=== PATIENT | female | born 1950 | race Caucasian/White ===

== ENCOUNTER 2018-04-10 08:47 | Inpatient (IN) | payer BC, MEDICARE ==
[~2018-04-10 08:47] MED LIST: MORPHINE SULFATE 15 MG TABLET.SA PO PRN; ROPIVACAINE HCL/PF 100 MG, EPINEPHrine 0.2 MG, KETOROLAC TROMETHAMINE 30 MG in NORMAL S... IJ PRN; TRANEXAMIC ACID 1,000 MG in NORMAL SALINE 100 ML IV PRN; ceFAZolin SODIUM 1 GM VIAL IV PRN
--- NOTE | 2018-04-10 09:38 | ANES ---
Anesthesia Pre Procedure Eval Vitals/Labs: Last Vital Signs Temp 36.3 C 04/10/18 08:55 Pulse 92 04/10/18 08:55 Resp 18 04/10/18 08:55 BP 155/94 H 04/10/18 08:55 Pulse Ox 95 04/10/18 08:55 HOME MEDICATIONS Enalapril Maleate [Vasotec] 10 mg PO DAILY 01/13/16 [Last Taken 07/06/16] Magnesium 200 mg PO DAILY 06/29/16 [Last Taken 07/06/16] [place]-3 Fatty Acids/Fish Oil [Fish Oil 1,000 mg Capsule] 1 ea PO DAILY 06/29/16 [Last Taken 07/06/16] acetaminophen 300 mg-codeine 30 mg tablet 1 tab PO Q4H PRN tab 02/10/18 [Last Taken Unknown] albuterol sulfate HFA 90 mcg/actuation aerosol inhaler 2 puff IH Q6H PRN g 09/25 [Last Taken Unknown] amitriptyline 50 mg tablet 50 mg PO HS 02/10/18 [Last Taken Unknown] calcium carbonate 500 mg calcium (1,250 mg) tablet 500 mg PO BID tab 02/10/18 [ Last Taken Unknown] diclofenac sodium 75 mg tablet,delayed release 75 mg PO BID 02/10/18 [Last Taken Unknown] potassium chloride ER 10 mEq tablet,extended release 10 meq PO DAILY #90 tab 09/25 [Last Taken Unknown] aspirin 325 mg tablet 325 mg PO DAILY 04/04/18 [Last Taken Unknown] furosemide 20 mg tablet 40 mg PO DAILY tab 04/04/18 [Last Taken Unknown] Allergies/Adverse Reactions: Allergies Allergy/AdvReac Type Severity Reaction Status Date / Time methylprednisolone Allergy Intermediate hives, Verified 03/16/18 13:14 [From Medrol] throat tightness prednisone Allergy Intermediate pill and Verified 03/16/18 13:14 IM got hives, throat tightness, no issues with iv losartan Allergy Mild swelling Verified 03/16/18 13:14 adhesive Allergy Hives Verified 03/16/18 13:14 tramadol [From Ultram] Allergy hives Verified 03/16/18 13:14 mupirocin AdvReac Mild burning Verified 03/16/18 13:14 rash lidocaine [From Lidoderm] AdvReac Itching Verified 03/16/18 13:14 - Planned Procedure Planned Procedure: Arthroplasty R Total Hip Medication List Reviewed:: Yes Allergies Verified: Yes Medical History (Last Reviewed 04/10/18 @ 09:37 by Jia Kaur RN) Urinary incontinence (Chronic) Onset Date: Unknown Hypertension (Chronic) Onset Date: Unknown Asthma (Chronic) Onset Date: Unknown Back pain Onset Date: Unknown Decreased libido Onset Date: 05/02/13 Hip pain, right Onset Date: Unknown Joint pain Onset Date: Unknown Pollen allergies Onset Date: Unknown Post-menopausal Onset Date: Unknown Bronchitis Onset Date: Unknown Cellulitis Onset Date: Unknown Chronic serous otitis media Onset Date: Unknown Cough Onset Date: Unknown Headache Onset Date: Unknown History of mammogram Onset Date: 04/02/16 Edema Onset Date: 01/24/17 Surgical History (Last Reviewed 04/04/18 @ 14:35 by Freddy Mcclure RN) Cataract Onset Date: 05/11/17 History of arthroscopic knee surgery Onset Date: 06/08/09 History of cholecystectomy Onset Date: Unknown History of colonoscopy Onset Date: 11/23/10 History of dilation and curettage Onset Date: Unknown History of hysterectomy Onset Date: Unknown History of knee replacement Onset Date: 06/18/02 History of shoulder surgery Onset Date: 03/05/10 Family History (Last Reviewed 04/04/18 @ 14:35 by Freddy Mcclure RN) Mother CAD (coronary artery disease) Thyroid disease Heart disease Anemia Arthritis Glaucoma Hyperlipemia Hypertension Myocardial infarction Peptic ulcer disease Father Myocardial infarction Sister Kidney neoplasm - Family Anesthesia History Family History:: no untoward family reactions to anesthesia, no familial bleeding tendencies, no family history of clotting disorders, no family history of premature - Airway/Neck/Teeth Within Normal Limits:: Yes Teeth Condition: Intact Mallampatti Score: 3 Thyromental (T-M) distance: > 6 cm Mandibulo Hyoid distance: > 3 cm - Respiratory Respiratory: lungs clear Smoking Status: Former smoker Discussed smoking cessation including day of surgery: No Sleep Apnea currently treated: No Sleep Apnea by current assessment: No Discussed Risks/Treatment of OMAR: No - Cardiovascular Tolerates Activity: Fair Heart Sounds: S1 & S2, Regular - Anesthesia Assessment and Plan ASA Class: PS, III Anesthesia Type Plan: Spinal Planned difficult intubation/equipment available: No
[2018-04-10] MEDS: RINGER'S SOLUTION,LACTATED 1,000 ML IV PRN ×2 (10:55→12:07)
[2018-04-10] MEDS ORDERED: ZOLPIDEM TARTRATE 5 MG TABLET PO PRN (13:15)
[2018-04-10] MEDS ORDERED: ACETAMINOPHEN 500 MG TABLET PO PRN (13:15)
[2018-04-10] MEDS ORDERED: MAG HYDROX/ALUMINUM HYD/SIMETH 30 ML UDC PO PRN (13:15)
[2018-04-10] MEDS ORDERED: DEXTROSE 5%-LACTATED RINGERS 1,000 ML IV PRN (13:15)
[2018-04-10] MEDS ORDERED: MAGNESIUM HYDROXIDE 30 ML UDC PO PRN (13:15)
[2018-04-10] MEDS ORDERED: diphenhydrAMINE HCL 50 MG/ML VIAL IV PRN (13:15)
[2018-04-10] MEDS ORDERED: MORPHINE SULFATE 4 MG/ML SYRG IV PRN (13:15)
--- NOTE | 2018-04-10 13:15 | OR ---
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 Procedure: Right Total hip arthroplasty. Surgeon: Octavio Phelps M.D. Multifocal Button Generator: Issa Anderson PA-C Anesthesia: Spinal and local periarticular joint injection. Complications: None Specimens: Bone for disposal. Estimated blood loss: 200 milliliters. Retained implants: Depuy [place] size 4 femoral stem standard offset. Size 52 millimeter outside diameter 3-hole [place] Gription acetabular cup. 52 millimeter outside by 36 millimeter inside diameter highly cross-linked acetabular liner. 36 millimeter diameter +1.5 millimeter ceramic femoral head. Cancellous 6.5mm screws 20 and 30 millimeter lengths Indications: Mrs. Joyner is a 68-year-old female who developed avascular necrosis of the right hip with aggressive right hip pain. This patient was followed in my clinic for period of time with significant complaints of right hip pain consistent with arthritic changes. She failed conservative measures including but not limited to activity modification, passage of time, medications , and other conservative measures. Patient wished to proceed with surgical treatment. The risks, benefits, and alternatives were discussed in clinic. The risks of , blood clots, bleeding, infection, nerve/tendon blood vessel / injury, malposition of components, dislocation and/or instability of joint, intraoperative fracture, postoperative limited range of motion, persistent pain , failure of components, and need for additional procedures. Patient wished to proceed. Consent was obtained after answering all questions. Procedure: After marking the correct extremity on the floor, the patient was taken to the operating room. A timeout was performed. IV antibiotics consisting of Ancef were administered prior to the procedure. A spinal anesthetic was induced by anesthesia. A Cooper catheter was inserted. The patient was then transitioned to a lateral position on a well-padded pegboard. An axillary roll was placed. The head was in neutral position. The non- operative down leg was well-padded with SCD and MAZIN hose in place. The arms were supported and padded to protect from any undue pressure on the bony prominences and nerves. A well-padded anterior and posterior pelvic and chest posts were secured in order to maintain a stable position of the pelvis. This was placed so that the pelvis was perpendicular to the floor. The body was in line with the pelvis. Once it was felt that we had protected all the bony prominences and the patient was well secured with a safety belt as well, the leg was pre-scrubbed with alcohol, prepped and draped in a standard sterile fashion. A standard anterior lateral hip incision was marked out over the greater trochanter. Ioban drapes were then placed. The skin incision was then made. Sharp dissection with a scalpel utilizing cautery for hemostasis was carried out down to the gluteus and iliotibial band fascia. This was split in line with the skin incision. The greater trochanter bursa was excised. The anterior and posterior margins of the abductor tendon were identified. The anterior 1/2-1/3 of the tendon was tagged and reflected off the greater trochanter leaving a sleeve of tendon for repair at the completion of the case. This exposed the underlying hip joint capsule. A limb length stitch was placed in the skin and referencedd off a juan on the greater trochanter for evaluation of intraoperative limb lengths. An inverted T-type capsulotomy was made extending this up to the brim of the acetabulum. Using Homans to assist with elevation of the soft tissues off the anterior, superior, and inferior aspects of the femoral neck, the hip was then placed in a figure 4 position and the femoral head was dislocated. With the leg in an externally rotated and adducted position, the cutting flag was utilized in order to juan for a standard femoral neck cut approximately a fingerbreadth above the level of the lesser trochanter. This was done with reference to pre-operative films and overall alignment. This was done while protecting the surrounding soft tissues with Homans. The femoral head was then removed and sized for guidance on preparation of the acetabulum. It was noted that there was loss of articular cartilage on both the femoral head and weightbearing portions of the acetabulum. We then returned the leg to the table and turned our attention to the acetabulum. While protecting the surrounding soft tissues, the labrum and remaining tissue in the fovea were excised using a scalpel and cautery. A series of reamers up to size 52 millimeter were utilized to prepare the acetabulum. The final reamer had good purchase and exposed the bleeding subchondral bone. The acetabulum was then thoroughly irrigated ensuring that all bony and cartilaginous materials were removed, and the final acetabular shell was impacted into place. This was placed in approximately 45 degrees of abduction and 20 degrees of anteversion utilizing the outrigger and body axis for alignment. This had a good press fit. 2 6.5mm cancellous screw was placed in the superior posterior quadrant of the acetabulum. The shell was then thoroughly irrigated and the final polyethylene was impacted into place ensuring that it seated completely. This was then protected with a sponge while we returned our attention to the femur. With the leg in a figure 4 position, utilizing Homans for soft tissue protection , a box cutting osteotome, followed by Charnley awl, followed by serial reamers and broaches were utilized in order to prepare the femur. It was found that a size 4 broach gave good axial and rotational stability. The calcar reamer was utilized in order to clean up the cut edges. The proximal femur was visualized to ensure that there were no signs of fracture. A series of heads and necks were trialed. It was found that a standard neck and a + 1.5 femoral head gave good overall stability. There was minimal longitudinal instability. With the leg in the position of sleep, the femoral head was well covered. Hip range of motion was able to reach full extension and external rotation to greater than 75 degrees prior to impingement along the posterior acetabulum. The hip was able to be flexed to greater than 90 degrees with internal rotation greater than 60 degrees prior to anterior impingement. The limb lengths were near equal based on comparison to the contralateral side and the prior placed limb length stitch. At this point it was felt these were the appropriately sized femoral components as well as neck and femoral head. The trial implants were removed. The femur was thoroughly irrigated. The final implants were impacted into place, and the hip was reduced. After ensuring that there was no damage to the proximal femur , the standard periarticular joint injection of ropivacaine, Toradol, and epinephrine were injected into the joint capsule and surrounding soft tissues. Anesthesia then administered intravenous tranexamic acid. The capsule was repaired with a single interrupted #1 Vicryl. The abductor tendon was repaired to the greater trochanter utilizing #5 Ethibond through drill holes. This was oversewn with #1 Vicryl. The fascia was closed with interrupted #1 Vicryl. The wounds were thoroughly irrigated as we closed in layers. The deep and subcutaneous fat layers were closed with 0 and 3-0 Vicryl respectively. The subcutaneous tissue was closed with a running 3-0 Vicryl and the skin with spencer. All sponge, needle, blade, and instrument counts were correct prior to closing the wounds. Sterile dressings consisting of Xeroform, 4 x 4's, and tape were applied. The patient was awoken and transferred to her hospital bed and then to the postanesthesia care unit in stable condition. Postoperative condition: The plan is to admit to the medical/surgical inpatient floor postoperatively. There will be a projected 1 to 3 day hospital stay. Postoperatively 24 hours of IV antibiotics, pain control, physical therapy, occupational therapy, and medical comanagement will be utilized. Patient will be weightbearing as tolerated with anterior hip precautions. Postoperative films will be obtained in the recovery room.
[2018-04-10] MEDS ORDERED: ALBUTEROL SULFATE 2.5 MG/0.5 ML VIAL.NEB IH PRN (13:17)
--- NOTE | 2018-04-10 13:43 | ANES ---
Post Anesthesia Discharge - Transfer of Care Transfer of Care handoff given to nurse: Yes - Discharge from PACU Discharge from PACU when meets criteria: Yes
--- NOTE | 2018-04-10 13:44 | ANES ---
Post Anesthesia Assessment - Vital Signs Vitals: Last Vital Signs Temp 36.4 C 04/10/18 13:30 Pulse 81 04/10/18 13:40 Resp 15 04/10/18 13:40 BP 116/52 04/10/18 13:40 Pulse Ox 97 04/10/18 13:40 Airway Patency: Normal - Mental Status Level Of Consciousness: Awake - Pain Level Pain Score: 0 - N/V Assessment Nausea/Vomiting Presence: None Dehydration:: No
[2018-04-10] MEDS: KETOROLAC TROMETHAMINE 15 MG/ML VIAL IV SCH ×2 (14:12→19:47)
[2018-04-10] MEDS: ceFAZolin SODIUM 1 GM in DEXTROSE 5 % IN WATER 100 ML IV SCH ×4 (16:36→21:53)
[2018-04-10] MEDS: oxyCODONE HCL/ACETAMINOPHEN 1 TAB TABLET PO PRN (17:03)
[2018-04-10] MEDS: AMITRIPTYLINE HCL 50 MG TABLET PO SCH (20:29)
[2018-04-10] MEDS: MORPHINE SULFATE 15 MG TABLET.SA PO SCH (20:29)
[2018-04-10] MEDS: CALCIUM CARBONATE 500 MG TAB.CHEW PO SCH (20:29)
[2018-04-10] MEDS: SENNOSIDES/DOCUSATE SODIUM 1 TAB TABLET PO SCH (20:29)
[2018-04-11] MEDS: oxyCODONE HCL/ACETAMINOPHEN 1 TAB TABLET PO PRN ×2 (01:55→06:29)
[2018-04-11] MEDS: KETOROLAC TROMETHAMINE 15 MG/ML VIAL IV SCH ×4 (01:57→18:50)
[2018-04-11] MEDS: ceFAZolin SODIUM 1 GM in DEXTROSE 5 % IN WATER 100 ML IV SCH ×2 (02:20)
[2018-04-11 05:36] LABS: Hematocrit 36.6 % (37.0-47.0); Hemoglobin 12.3 gm/dL (12.5-16.0); Mean Cell Volume 100.5 fl (78-100); Mean Corpuscular Hemoglobin 33.8 pg (27-31); Mean Corpuscular Hgb Conc 33.6 g/dl (32-36); Mean Platelet Volume 10.1 fl (8-12.5); Platelet Count 141 K/mm3 (150-450); Red Blood Count 3.64 M/mm3 (4.2-5.4); Red Cell Distribution Width 12.4 % (11.5-14.0); White Blood Count 8.2 K/mm3 (4.0-10.5)
[2018-04-11 05:38] LABS: Anion Gap 9.9 mmol/L (6.8-13.8); BUN/Creatinine Ratio 21.9 (9.0-21.6); Calcium * 8.5 mg/dL (7.9-10.9); Carbon Dioxide 30.4 mmol/L (24-32.6); Estimated Creat Clear 57.5; Potassium 4.3 mmol/L (3.4-4.6)
[2018-04-11] MEDS: ONDANSETRON HCL/PF 2 MG/ML VIAL IV PRN ×2 (08:31→12:34)
[2018-04-11] MEDS: FUROSEMIDE 40 MG TABLET PO SCH (09:08)
[2018-04-11] MEDS: POTASSIUM CHLORIDE 10 MEQ TABLET.SA PO SCH (09:08)
[2018-04-11] MEDS: MORPHINE SULFATE 15 MG TABLET.SA PO SCH ×2 (09:09→21:11)
[2018-04-11] MEDS: ENALAPRIL MALEATE 5 MG TABLET PO SCH (09:09)
[2018-04-11] MEDS: MAGNESIUM OXIDE 400 MG TABLET PO SCH (09:10)
[2018-04-11] MEDS: CALCIUM CARBONATE 500 MG TAB.CHEW PO SCH ×2 (09:10→21:11)
--- NOTE | 2018-04-11 09:26 | PN ---
Subjective - Date and Time Seen Date: 04/11/18 Time: 09:24 Subjective Narrative: Anne reports nausea. She believes from pain medications. She reports her pain is pretty well controlled and she is in less pain than before surgery. No shortness of breath or chest pain. Objective - Vitals Vitals: Last Vital Signs Temp 37.1 C 04/11/18 08:01 Pulse 77 04/11/18 09:09 Resp 18 04/11/18 08:01 BP 152/74 H 04/11/18 09:09 Pulse Ox 90 L 04/11/18 08:01 - Abnormal Lab Findings Abnormal Lab Findings: Abnormal Lab Results 04/11/18 04/11/18 Range/Units 05:15 05:15 RBC 3.64 L (4.2-5.4) M/mm3 Hgb 12.3 L (12.5-16.0) gm/dL Hct 36.6 L (37.0-47.0) % MCV 100.5 H (78-100) fl MCH 33.8 H (27-31) pg Plt Count 141 L (150-450) K/mm3 BUN/Creatinine Ratio 21.9 H (9.0-21.6) - Exam Constitutional: Present: Alert, Oriented x3, Cooperative ENT Exam: Present: hearing grossly normal Respiratory: Present: lungs clear, normal breath sounds Cardiovascular/Chest: Present: regular rate, rhythm, no murmur Abdomen: Present: Normal bowel sounds, soft, nontender, nondistended Skin Exam: Present: normal color, warm/dry, no cyanosis Cauti Physician Documentation - Urinary Catheter Management Urethral (Cooper) Date of Insertion: 04/10/18 Time of Insertion: 11:15 Date of Removal: 04/11/18 Time of Removal: 08:40 Assessment/Plan Plan Narrative: Anne is a 68 yo female with: 1) S/P Right Total Hip repair for avascular necrosis and degenerative joint disease POD #1. Overall doing well today. She has some nausea potentially from pain medication. This is adjusted per Ortho. She is otherwise doing well and reports less pain than before surgery. No medical concerns. - Problems/Diagnosis (1) Status post total hip replacement, right Problem: Acute (2) Avascular necrosis of bone of right hip Problem: Chronic (3) Degenerative joint disease of right hip Problem: Chronic Qualifiers: Osteoarthritis type: primary Qualified Code(s): M16.11 - Unilateral primary osteoarthritis, right hip (4) Nausea Problem: Acute
[2018-04-11] MEDS: ENOXAPARIN SODIUM 40 MG/0.4 ML SYRG SC SCH (12:16)
[2018-04-11] MEDS: HYDROcodone/ACETAMINOPHEN 1 EACH TABLET PO PRN ×2 (15:56→23:28)
--- NOTE | 2018-04-11 16:13 | PN ---
Subjective - Date and Time Seen Date: 04/11/18 Time: 08:00 Subjective Narrative: Subjective: Reports some nausea and lightheadedness. Was able to get up to chair with therapy. Pain is well-controlled. Voiding without any complications. Tolerating by mouth intake. Denies any vomiting. Denies calf pain. Slept well. Physical exam: Alert and oriented to person, place and time Right lower Extremity: Palpable dorsalis pedis pulse. Sensation grossly intact to light touch. Dressings clean and dry. Able to flex and extend ankle and toes. No excessive drainage. Calf and thigh are soft and nontender. Assessment: Postop day 1 status post right total hip arthroplasty. Plan: Due to the need for pain control, post-operative limited mobility, protection of the surgical site and joint, monitoring of the wound, and the management of chronic medical conditions, she requires continued inpatient care. Continue with physical and occupational therapy weightbearing as tolerated. Continue with anticoagulation. 24 hours postoperative prophylactic antibiotics. Pain control with goal to rely on oral medications - adjusted her pain medicines in order to help improve her nausea and lightheadedness. Continue bowel regimen. Will need 6 weeks with walker or assitive device to protect joint while ambulating during the recovery process. Discharge planning - goal for discharge tomorrow. Discontinue Cooper catheter. Objective - Vitals Vitals: Last Vital Signs Temp 36.4 C 04/11/18 15:22 Pulse 81 04/11/18 15:22 Resp 18 04/11/18 15:22 BP 136/56 04/11/18 15:22 Pulse Ox 96 04/11/18 15:22 - Abnormal Lab Findings Abnormal Lab Findings: Abnormal Lab Results 04/11/18 04/11/18 Range/Units 05:15 05:15 RBC 3.64 L (4.2-5.4) M/mm3 Hgb 12.3 L (12.5-16.0) gm/dL Hct 36.6 L (37.0-47.0) % MCV 100.5 H (78-100) fl MCH 33.8 H (27-31) pg Plt Count 141 L (150-450) K/mm3 BUN/Creatinine Ratio 21.9 H (9.0-21.6) Cauti Physician Documentation - Urinary Catheter Management Urethral (Cooper) Date of Insertion: 04/10/18 Time of Insertion: 11:15 Date of Removal: 04/11/18 Time of Removal: 08:40 Assessment/Plan - Problems/Diagnosis (1) Nausea Problem: Acute (2) Status post total hip replacement, right Problem: Acute (3) Asthma Problem: Chronic (4) Hypertension Problem: Chronic (5) Urinary incontinence Problem: Chronic (6) Acute blood loss anemia Problem: Acute
[2018-04-11] MEDS: SENNOSIDES/DOCUSATE SODIUM 1 TAB TABLET PO SCH (21:12)
[2018-04-11] MEDS: AMITRIPTYLINE HCL 50 MG TABLET PO SCH (21:12)
[2018-04-12] MEDS: KETOROLAC TROMETHAMINE 15 MG/ML VIAL IV SCH ×2 (01:18→07:28)
[2018-04-12] MEDS: HYDROcodone/ACETAMINOPHEN 1 EACH TABLET PO PRN (06:33)
[2018-04-12] MEDS: MORPHINE SULFATE 15 MG TABLET.SA PO SCH (08:24)
[2018-04-12] MEDS: POTASSIUM CHLORIDE 10 MEQ TABLET.SA PO SCH (08:25)
[2018-04-12] MEDS: FUROSEMIDE 40 MG TABLET PO SCH (08:25)
[2018-04-12] MEDS: ENALAPRIL MALEATE 5 MG TABLET PO SCH (08:26)
[2018-04-12] MEDS: CALCIUM CARBONATE 500 MG TAB.CHEW PO SCH (08:26)
[2018-04-12] MEDS: MAGNESIUM OXIDE 400 MG TABLET PO SCH (08:26)
--- NOTE | 2018-04-12 12:37 | DS ---
(1) Nausea Problem: Acute (2) Status post total hip replacement, right Problem: Acute (3) Asthma Problem: Chronic (4) Hypertension Problem: Chronic (5) Urinary incontinence Problem: Chronic (6) Acute blood loss anemia Problem: Acute Description of Stay: Mrs. Joyner was admitted to the floor after undergoing right total hip arthroplasty. Tolerated this well. Was admitted to the floor postoperatively for 24 hours of IV antibiotics, pain control, medical comanagement, and occupational and physical therapy. OT and PT were consulted to assist with activities of daily living and ambulation. Was made weightbearing as tolerated with range of motion as tolerated. Pain was initially controlled with IV ailyn men. This was transitioned to oral once tolerating a by mouth intake. She did have some lightheadedness and nausea with her pain meds which were adjusted and improved the symptoms prior to discharge. Was resumed on home diet and medications. Had a Cooper catheter inserted and the operating room which was discontinued on postoperative day 1. Lovenox SCD and MAZIN hose were utilized for DVT prophylaxis. Vital signs remained stable to the hospital course. Serial labs were obtained which showed a final hemoglobin of 12.3 grams. BMP was reviewed and was stable. Physical examination throughout the hospital course showed an extremity that had sensation that was intact to light touch, palpable pulses, a benign wound, motor intact to the toes, ankle, and knee. Once an oral pain regimen was tolerated and physical therapy goals were met, it was felt that they were stable for discharge to home. Instructions: Continue with weightbearing as tolerated and anterior hip precautions with no active abduction. Do not bathe or soak the wound. If there is any drainage from the wound keep the wound clean and dry and cover with dry gauze and tape. Change every 2-3 days as needed if there is any drainage. Cover wound while showering. Continue with physical therapy. Resume home diet. Report any fever over 101.5 Fahrenheit, uncontrolled pain, increased drainage, foul odor of drainage, new or increased calf pain or shortness of breath, or any other significant complaints. A 325mg dialy aspirin will be started after finishing anticoagulation if not allergic. Continue with MAZIN hose on the operative extremity until instructed otherwise. No driving until instructed otherwise. Follow up in approximately 10-14 days. Procedures Performed: see notes below List Procedures: Right total hip arthroplasty Results and Findings: Lab Pending Results 04/11/18 05:15: WBC 8.2, RBC 3.64 L, Hgb 12.3 L, Hct 36.6 L, MCV 100.5 H, MCH 33.8 H, MCHC 33.6, RDW 12.4, Plt Count 141 L, MPV 10.1 04/11/18 05:15: Sodium 139, Plasma Sodium 139, Potassium 4.3, Chloride 103, Ca rbon Dioxide 30.4, Anion Gap 9.9, BUN 16, Creatinine 0.73, Est GFR (Non-Af Amer) 84, BUN/Creatinine Ratio 21.9 H, Random Glucose 94, Calcium 8.5 Discharge Location: Home Disposition: Home self-care Condition: Good Discharge Activity: Weight bearing, Other - anterior hip precautions no active abduction Discharge Diet: General/regular food Referrals: Dirk Murphy DO [Primary Care Provider] - Additional Patient Instructions (free text): Physical Therapy at [facility] outpatient rehab on Dr Phelps's follow up Orthopedic appointment on TuesdayApril 25 at 1:45pm. Prescriptions (Any new or edited meds): Enoxaparin Sodium [Lovenox] 40 mg SC Q24H #7 disp.syrin HYDROcodone/ACETAMINOPHEN [[place] 5-325] 2 each PO Q6H PRN #60 tablet PRN Reason: Pain Morphine Sulfate [Ms Contin] 15 mg PO Q12H #10 tablet.sa Complete Home Medications List: Complete Home Medication List: Enalapril Maleate [Vasotec] 10 mg PO DAILY 01/13/16 Magnesium 200 mg PO DAILY 06/29/16 [place]-3 Fatty Acids/Fish Oil [Fish Oil 1,000 mg Capsule] 1 ea PO DAILY 06/29/16 albuterol sulfate HFA 90 mcg/actuation aerosol inhaler 2 puff IH Q6H PRN g 02/10/18 amitriptyline 50 mg tablet 50 mg PO HS 02/10/18 calcium carbonate 500 mg calcium (1,250 mg) tablet 500 mg PO BID tab 02/10/18 diclofenac sodium 75 mg tablet,delayed release 75 mg PO BID 02/10/18 potassium chloride ER 10 mEq tablet,extended release 10 meq PO DAILY #90 tab 02/10/18 furosemide 20 mg tablet 40 mg PO DAILY tab 04/04/18 Enoxaparin Sodium [Lovenox] 40 mg SC Q24H #7 disp.syrin 04/12/18 HYDROcodone/ACETAMINOPHEN [[place] 5-325] 2 each PO Q6H PRN #60 tablet 04/12/18 Morphine Sulfate [Ms Contin] 15 mg PO Q12H #10 tablet.sa 04/12/18 Sennosides/Docusate Sodium [Senokot-S] 2 tab PO HS tablet 04/12/18 Amb Orders for Discharge: PT Evaluation and Treatment* Facility: [facility], Location: Rehabilitation Services
[2018-04-12] MEDS: ENOXAPARIN SODIUM 40 MG/0.4 ML SYRG SC SCH (13:02)
[2018-04-12 14:51] VITALS: BP 114/49
== END 2018-04-12 14:38 | disposition home or self-care (01) | DRG 470 ==
LOC: MS 08:47
PROVIDERS: ADMIT Orthopaedic Surgery; ATTEND Orthopaedic Surgery
CPT/HCPCS: 36415; 73502; 80048; 85027; 97110; 97116; 97161; 97165; 97535; J2405